=== PATIENT | female | born 1990 ===

== ENCOUNTER 2018-08-24 15:50 | Emergency (ER) | payer OTHER ==
[2018-08-24 16:37] VITALS: BMI 18.0
[2018-08-24 16:39] VITALS: O2SAT 97
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
[2018-08-24 20:36] VITALS: BP 118/67; PULSE 85; RESP 18; TEMP 98
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
== END 2018-08-24 19:50 | disposition home or self-care (01) ==
LOC: ED 15:50
DX: S09.90XA Unspecified injury of head, initial encounter (principal); V49.40XA Driver injured in collision with unspecified motor vehicles in traffic accident, initial encounter; M79.622 Pain in left upper arm; R51 Headache